=== PATIENT | female | born 1995 | race Caucasian/White ===

== ENCOUNTER 2018-02-15 21:43 | Emergency (ER) | payer BC, OTHER ==
[2018-02-15 21:56] VITALS: BP 143/78
--- NOTE | 2018-02-15 22:10 | UC ---
Complaint Female HPI - HPI Summary HPI Summary: The patient is a 22-year-old female that presents here with the onset of dysuria urgency and frequency this evening. She states that she has had frequent urinary tract infections this semester. She denies any back or abdominal pain. She denies any vaginal discharge or itching. She has had no fever or chills. She has no nausea vomiting or diarrhea. - History Of Current Complaint Chief Complaint: UCGU Stated Complaint: POSS UTI Time Seen by Provider: 02/15/18 22:03 Hx Obtained From: Patient Hx Last Menstrual Period: <1 WEEK AGO Onset/Duration: Gradual Onset, Lasting Hours Timing: Intermittent, Lasting Seconds Severity Initially: Mild Severity Currently: Mild Pain Intensity: 2 Pain Scale Used: 0-10 Numeric Character: Burning Aggravating Factor(s): Urination Associated Signs And Symptoms: Positive: Negative Related Hx: Similar Episode/Dx as: - uti - Allergies/Home Medications Allergies/Adverse Reactions: Allergies Allergy/AdvReac Type Severity Reaction Status Date / Time No Known Allergies Allergy Verified 02/15/18 21:56 Home Medications: Home Medications Control* 1 tab PO DAILY 02/15/18 [History Confirmed 02/15/18] PMH/Surg Hx/FS Hx/Imm Hx Previously Healthy: Yes - Surgical History Surgical History: None - Family History Known Family History: Positive: Hypertension Negative: Cardiac Disease, Diabetes - Social History Alcohol Use: None Substance Use Type: None Smoking Status (MU): Never Smoked Tobacco Review of Systems Constitutional: Negative Skin: Negative Eyes: Negative ENT: Negative Respiratory: Negative Cardiovascular: Negative Gastrointestinal: Negative Genitourinary: Dysuria, Frequency, Urgency Motor: Negative Neurovascular: Negative Musculoskeletal: Negative Neurological: Negative Psychological: Negative All Other Systems Reviewed And Are Negative: Yes Physical Exam Triage Information Reviewed: Yes Appearance: Well-Appearing, No Pain Distress, Well-Nourished Vital Signs: Initial Vital Signs Temp 98 F 02/15/18 21:53 Pulse 81 02/15/18 21:53 Resp 16 02/15/18 21:53 BP 143/78 02/15/18 21:53 Pulse Ox 100 02/15/18 21:53 Vital Signs Reviewed: Yes Eyes: Positive: Conjunctiva Clear ENT: Positive: Hearing grossly normal. Negative: Nasal congestion, Nasal drainage, Trismus, Muffled voice, Sinus tenderness Neck: Positive: Supple Respiratory: Positive: Lungs clear, Normal breath sounds, No respiratory distress Cardiovascular: Positive: RRR, No Murmur Abdomen Description: Positive: Nontender, No Organomegaly, Soft. Negative: CVA Tenderness (R), CVA Tenderness (L) Bowel Sounds: Positive: Present Musculoskeletal: Positive: ROM Intact, No Edema Neurological: Positive: Alert Psychological Exam: Normal Skin Exam: Normal Diagnostics - Laboratory Diagnostic Studies Completed/Ordered: UA ++ leuks Complaint Female Dx - Differential Dx/Diagnosis Provider Diagnoses: acute cystitis Discharge - Sign-Out/Discharge Documenting (check all that apply): Patient Departure All imaging exams completed and their final reports reviewed: No Studies - Discharge Plan Condition: Stable Disposition: HOME Prescriptions: Cephalexin CAP* [Keflex CAP*] 500 mg PO BID #8 cap Phenazopyridine TAB* [Pyridium TAB*] 100 mg PO TID #4 tab Patient Education Materials: Urinary Tract Infection in Women (ED) Referrals: [facility] [Primary Care Provider] - 3 Days (if not better) Additional Instructions: a urine culture is pending - Billing Disposition and Condition Condition: STABLE Disposition: Home
[2018-02-15] MEDS ORDERED: Cephalexin CAP* 500 MG PO ONE ×2 (22:13→22:14)
[2018-02-15] MEDS ORDERED: Phenazopyridine TAB* 100 MG PO ONE ×2 (22:14→22:15)
== END 2018-02-15 22:28 | disposition home or self-care (01) ==
LOC: UCEAST 21:43
DX: N30.00 Acute cystitis without hematuria (principal)
CPT/HCPCS: 81003; 84702; 87086; 99203; A9270-GY; G0463